=== PATIENT | female | born 1975 | race Asian ===

== ENCOUNTER → 2024-06-13 01:06 | Outpatient (CLI) | payer MEDICAID, SELFPAY ==
--- NOTE | 2024-06-13 09:17 | DI.RAD_ITS ---
Exam(s) XR KNEE RT 3V AP,LAT,PRATEEK EXAM: XR KNEE RT 3V AP,LAT,PRATEEK CLINICAL HISTORY: right knee pain, M25.561. TECHNIQUE: 2D digital imaging was performed. COMPARISON: No exams were available for comparison FINDINGS: 3 views No evidence of acute fracture. Small amount of increased joint fluid noted. No large joint effusion . Bone density normal. No osseous lesions. No obvious degenerative changes. No osteochondral defe cts. No erosions. IMPRESSION: No significant osseous findings in the knee. Small amount of increased joint fluid evident. DATA REPOSITORY: RADIATION DOSE DELIVERED:
== END ==
PROVIDERS: PCP Family Medicine; Visit Provider Family Medicine
DX: M25.561 Pain in right knee (principal); G89.29 Other chronic pain
CPT/HCPCS: 73562

== ENCOUNTER 2024-10-11 13:28 | Outpatient (REF) | payer MEDICAID, SELFPAY ==
--- NOTE | 2024-10-11 09:00 | PAPFT_PTH ---
PATIENT: Haroon Sanchez LOC: [facility] U#:[id number] AGE/SX: 49/F ROOM: RE10/11/[address]: Janice Suárez : 1975 BED: DIS: 10/11/2024 SPEC #: [id number] RECD: 10/11/24 13:30 STATUS: CHRISTEN MAGAÑA #: [id number] NIYAH: 10/11/24 09:[address]: Janice Suárez DEPT: [facility] Cytology RECD BY: Shannan Roy Tissues: 1 - CX/ENDOCX FOR PAP SMEARS Procedures: PAP THIN PREP/[facility] Screening HPV DNA PROBE Comments: [id number] (HPV 16 & 18/45)
== END 2024-10-11 13:29 | disposition home or self-care (01) ==
LOC: NCHCN 13:28
PROVIDERS: PCP Family Medicine; Visit Provider Family Medicine
DX: Z11.51 Encounter for screening for human papillomavirus (HPV) (principal); Z01.419 Encounter for gynecological examination (general) (routine) without abnormal findings
CPT/HCPCS: 88142; 87624

== ENCOUNTER 2024-11-18 12:25 | Outpatient (CLI) | payer MEDICAID, SELFPAY ==
--- OUTSIDE RECORDS SUMMARY | 2024-11-18 12:28 | XMS_ITS | Clinical Summary ---
Author Organization [facility] Address [address] [place] [address] Care Team Providers Care Mule Packer Name Role Phone Unavailable Primary Care Provider Unavailabl e Encounters Date Type Department Care Team Description 10/14/2024 Lab Requisition [facility] Pathology & Laboratory Medicine - [facility] [address] [place] [address] Janice Suárez MD Encounter for other general examination from Last 3 Months Social History Tobacco Use Types Packs/Day Years Used Date Smoking Tobacco: Never Assessed Comments Unknown Sex and Gender Information Value Date Recorded Sex Assigned at Not on file Legal Sex Female 10:07 EST Gender Identity Not on file Sexual Orientation Not on file Plan of Treatment Health Maintenance Due Date Last Done Comments Hepatitis C Screen 1975 Hepatitis B Vaccine (1 of 3 - 19+ 3-dose series) 05/23 COVID-19 Vaccine ( season) 2024 Procedures Procedure Name Priority Date/Time Associated Diagnosis Comments PAP TEST Today 10/11/2024 9:00 EST Encounter for other general examination HPV DNA DETECTION WITH GENOTYPING, PCR Today 10/11/2024 9:00 EST Encounter for other general examination from Last 3 Months Results * PAP TEST (10/11/2024 9:00 EST) Specimens A. Cervix and/or Endocervix , ThinPrep Imaging System with Manual Evaluation 10/17/2024 14:42 EST [facility] Specimen Adequacy Satisfactory for Evaluation - transformation zone component present 10/17/2024 14:42 EST [facility] General Categorization Negative for intraepithelial lesion or malignancy 10/17/2024 14:42 EST [facility] Attestation . 10/17/2024 14:42 EST [facility] at 1442 Clinical History See below 10/17/20 14:42 [facility] Performing Lab [facility] 10/17/2024 14:42 [facility] Scanned Images 10/17/2024 14:42 [facility] HPV High Risk type 16, PCR Negative 10/17/2024 14:42 [facility] HPV High Risk type 18, PCR Negative 10/17/2024 14:42 [facility] HPV Other High Risk Types, PCR Positive Positive for one of the following Other High Risk HPV types: 31,33, 35, 39, 45, 51, 52, 56, 58, 59, 66 and 68. 10/17/2024 14:42 [facility] Pap Test CERVIX UTERI STRUCTURE / Unknown 10/11/2024 9:00 EST 10/14/2024 10:09 EST Janice Suárez MD PATHOLOGY ORDERABLES Fi nal Result [facility] [address] [place] [id number] * (ABNORMAL) HPV DNA DETECTION WITH GENOTYPING, PCR (10/11/2024 9:00 EST) HPV High Risk type 16, PCR Negative Negative 10/17/2024 14:42 [facility] HPV High Risk type 18, PCR Negative Negative 10/17/2024 14:42 [facility] HPV other High Risk types, PCR Positive(A) Negative 10/17/2024 14:42 [facility] Comment: Positive for one of the following Other High Risk HPV types: ??31,33, 35, 39, 45, 51, 52, 56, 58, 59, 66 and 68. Pap Test CERVIX UTERI STRUCTURE / Unknown 10/11/2024 9:00 EST 10/16/2024 15:22 EST Janice Suárez MD MICROBIOLOGY - GENERAL ORDERABLES Final Result [facility] [address] [place] [address] from Last 3 Months
--- OUTSIDE RECORDS SUMMARY | 2024-11-18 12:28 | XMS_ITS | Encounter Summary ---
Author Organization [facility] Address [address] [place] [address] Care Team Providers Care Dental Chairside Assistant Name Role Phone Unavailable Primary Care Provider Unavailabl e Encounter Details Date Type Department Care Team (Late st Contact Info) Description 10/14/2024 Lab Requisition [facility] Pathology & Laboratory Medicine - [facility] [address] [place] [address] Janice Suárez MD [address] [place] [phone] Encounter for other general examination Social History Tobacco Use Types Packs/Day Years Used Date Smoking Tobacco: Never Assessed Comments Unknown Sex and Gender Information Value Date Recorded Sex Assigned at Not on file Legal Sex Female 10:07 EST Gender Identity Not on file Sexual Orientation Not on file documented as of this encounter Plan of Treatment Not on file documented as of this encounter Procedures Procedure Name Priority Date/Time Associated Diagnosis Comments PAP TEST Today 10/11/2024 9:00 EST Encounter for other general examination HPV DNA DETECTION WITH GENOTYPING, PCR Today 10/11/2024 9:00 EST Encounter for other general examination documented in this encounter Results * (ABNORMAL) HPV DNA DETECTION WITH GENOTYPING, PCR (10/11/2024 9:00 EST) HPV High Risk type 16, PCR Negative Negative 10/17/2024 14:42 EST [facility] HPV High Risk type 18, PCR Negative Negative 10/17/2024 14:42 EST [facility] HPV other High Risk types, PCR Positive(A) Negative 10/17/2024 14:42 EST [facility] Comment: Positive for one of the following Other High Risk HPV types: ??31,33, 35, 39, 45, 51, 52, 56, 58, 59, 66 and 68. Pap Test CERVIX UTERI STRUCTURE / Unknown 10/11/2024 9:00 EST 10/16/2024 15:22 EST Janice Suárez MD MICROBIOLOGY - GENERAL ORDERABLES Final Result [facility] [address] [place] [phone] * PAP TEST (10/11/2024 9:00 EST) Specimens A. Cervix and/or Endocervix , ThinPrep Imaging System with Manual Evaluation 10/17/2024 14:42 [facility] Specimen Adequacy Satisfactory for Evaluation - transformation zone component present 10/17/2024 14:42 [facility] General Categorization Negative for intraepithelial lesion or malignancy 10/17/2024 14:42 [facility] Attestation . 10/17/2024 14:42 [facility] at 1442 Clinical History See below 10/17/20 14:42 [facility] Performing Lab [facility] 10/17/2024 14:42 [facility] Scanned Images 10/17/2024 14:42 [facility] HPV High Risk type 16, PCR Negative 10/17/2024 14:42 [facility] HPV High Risk type 18, PCR Negative 10/17/2024 14:42 [facility] HPV Other High Risk Types, PCR Positive Positive for one of the following Other High Risk HPV types: 31,33, 35, 39, 45, 51, 52, 56, 58, 59, 66 and 68. 10/17/2024 14:42 [facility] Pap Test CERVIX UTERI STRUCTURE / Unknown 10/11/2024 9:00 EST 10/14/2024 10:09 EST Janice Suárez MD PATHOLOGY ORDERABLES Fi nal Result [facility] [address] [place] [address] documented in this encounter Visit Diagnoses Diagnosis Encounter for other general examination documented in this encounter
--- OUTSIDE RECORDS SUMMARY | 2024-11-18 12:28 | XMS_ITS | Referral Summary ---
Author Organization [facility] Address [address] [place] [id number] Care Team Providers Care Mathematical Engineering Technician Name Role Phone Unavailable Primary Care Provider Unavailabl e Encounters Date Type Department Care Team Description 10/14/2024 Lab Requisition [facility] Pathology & Laboratory Medicine - [facility] [address] [place] [address] Janice Suárez MD Encounter for other general examination from Last 3 Months Social History Tobacco Use Types Packs/Day Years Used Date Smoking Tobacco: Never Assessed Comments Unknown Sex and Gender Information Value Date Recorded Sex Assigned at Not on file Legal Sex Female 10:07 EST Gender Identity Not on file Sexual Orientation Not on file Plan of Treatment Not on file Procedures Procedure Name Priority Date/Time Associated Diagnosis Comments PAP TEST Today 10/11/2024 9:00 EST Encounter for other general examination HPV DNA DETECTION WITH GENOTYPING, PCR Today 10/11/2024 9:00 EST Encounter for other general examination from Last 3 Months Results * PAP TEST (10/11/2024 9:00 EST) Specimens A. Cervix and/or Endocervix , ThinPrep Imaging System with Manual Evaluation 10/17/2024 14:42 [facility] Specimen Adequacy Satisfactory for Evaluation - transformation zone component present 10/17/2024 14:42 [facility] General Categorization Negative for intraepithelial lesion or malignancy 10/17/2024 14:42 [facility] Attestation . 10/17/2024 14:42 [facility] at 1442 Clinical History See below 10/17/20 14:42 [facility] Performing Lab [facility] 10/17/2024 14:42 [facility] Scanned Images 10/17/2024 14:42 [facility] HPV High Risk type 16, PCR Negative 10/17/2024 14:42 [facility] HPV High Risk type 18, PCR Negative 10/17/2024 14:42 [facility] HPV Other High Risk Types, PCR Positive Positive for one of the following Other High Risk HPV types: 31,33, 35, 39, 45, 51, 52, 56, 58, 59, 66 and 68. 10/17/2024 14:42 [facility] Pap Test CERVIX UTERI STRUCTURE / Unknown 10/11/2024 9:00 EST 10/14/2024 10:09 EST us Janice Suárez MD PATHOLOGY ORDERABLES Fi nal Result Performing Organization Address City/[facility]/ZIP Co de Phone Number [facility] [address] [place] [address] * (ABNORMAL) HPV DNA DETECTION WITH GENOTYPING, PCR (10/11/2024 9:00 EST) HPV High Risk type 16, PCR Negative Negative 10/17/2024 14:42 [facility] HPV High Risk type 18, PCR Negative Negative 10/17/2024 14:42 [facility] HPV other High Risk types, PCR Positive(A) Negative 10/17/2024 14:42 [facility] Comment: Positive for one of the following Other High Risk HPV types: ??31,33, 35, 39, 45, 51, 52, 56, 58, 59, 66 and 68. Pap Test CERVIX UTERI STRUCTURE / Unknown 10/11/2024 9:00 EST 10/16/2024 15:22 EST us Janice Suárez MD MICROBIOLOGY - GENERAL ORDERABLES Final Result Performing Organization Address City/[facility]/ZIP Co de Phone Number [facility] [address] [place] [phone] from Last 3 Months
[2024-11-18 18:55] LABS: HBs Antibody, Qual Positive (See Note); HBs Antibody, Quant 601.5 mIU/mL (See Note); Hepatitis B Core Antibody Negative (Negative); Hepatitis B surface Ag Negative (Negative); Hepatitis C Ab w Rflx HCV PCR Negative (Negative)
[2024-11-18 19:06] LABS: HIV-1/2 Ag & Ab Screen Negative (Negative)
[2024-11-19 10:21] LABS: Syphilis Serology (RPR) Negative (Negative)
== END 2024-11-18 12:26 | disposition home or self-care (01) ==
LOC: LBO 12:26
PROVIDERS: PCP Family Medicine; Visit Provider Obstetrics & Gynecology
DX: Z11.3 Encounter for screening for infections with a predominantly sexual mode of transmission (principal); Z86.19 Personal history of other infectious and parasitic diseases
CPT/HCPCS: 36415; 86704; 86706; 86803; 87340; 87389; 86592

== ENCOUNTER 2025-01-01 09:11 | Day surgery (SDC) | payer MEDICAID, SELFPAY ==
--- NOTE | 2025-01-01 07:15 | W.PM.DSUDISC ---
Date of service: 01/01/25 Discharge Plan Disposition Patient Disposition: Home Condition: Stable Discharge Details Attending Provider: Bubba Champion Primary Care Provider: Janice Suárez Home Meds and New Rx's Prescriptions: Continued famotidine 20 mg tablet 20 mg PO BID Qty: 180 3RF rosuvastatin 5 mg tablet 5 mg PO DAILY Qty: 90 3RF omeprazole 20 mg capsule,delayed release(DR/EC) 20 mg PO HS Qty: 30 2RF cholecalciferol (vitamin D3) 25 mcg (1,000 unit) capsule 25 mcg PO DAILY up4 Probiotics Adult 50 Plus 25 billion cell capsule PO magnesium 250 mg tablet 250 mg PO DAILY cyanocobalamin (vitamin B-12) [Vitamin B-12] 100 mcg tablet 100 mcg PO DAILY Discharge Instructions Additional Instructions: Surgery: Right middle & ring finger trigger releases 01/01/25 Activity: Protect hand for a few weeks. Gently increase finger motion and hand gripping to prevent stiffness. Recommend elevation to minimize swelling and discomfort. Prescriptions: None Resume home medicines, use [id number] Tylenol (acetaminophen) as needed for mild pain and ibuprofen (Motrin) or naproxen (Aleve) as needed for moderate to severe pain and swelling. Dressings: Leave dressing in place for 3 days. May then remove and leave open to air or cover incision with Band-Aid. May get wet after 5 days. Follow-up: 10-[address] Champion Please call the office during business hours with any questions or concerns. Discharge Orders Discharge Orders: Discharge Order (Routine); Ordered 01/01/25 Ordered By: Sydni Murcia DS: Diagnosis Discharge Diagnosis (1) Trigger finger, right middle finger: Status: Acute (2) Trigger finger, right ring finger: Status: Acute
--- NOTE | 2025-01-01 07:55 | ROE_ITS ---
Operative Note Operative Note PRE-OP DIAGNOSIS: Right ring and middle trigger fingers POST-OP DIAGNOSIS: same PROCEDURE: 1. Right middle finger trigger release, CPT# 54889 2. Right ring finger trigger release, CPT# 48622 SURGEON: Bubba Champion POLITICAL SCIENCE PROFESSOR: None None ANESTHESIA TYPE: Local By Surgeon Refer to Anesthesia Record ESTIMATED BLOOD LOSS: 1 TOURNIQUET TIME: 0 COMPLICATIONS: None Patient was transported to: same day Patient's condition: stable Indications: Please see complete medical record for details. Procedure Description: In the operating room, the patient was positioned supine on the stretcher. All bony prominences were padded. Preoperative antibiotics were omitted. The correct patient, procedure, and side of the procedure were all verified prior to beginning. Local anesthesia was induced about the sites with 10cc of 1% lidocaine containing epinephrine buffered with 1 cc of sodium bicarbonate. The right hand was prepped and draped in the usual sterile fashion. Proper analgesia was confirmed. A small volar longitudinal approach was made overlying the middle finger MCP joint. Soft tissues were swept to the sides and retracted to expose the A1 amanda. The release was started centrally with a knife and completed at the proximal and distal margins with tenotomy scissors. Care was taken to protect the flexor tendons. The tendons were inspected and intact. Appropriate flexor tendon excursion was confirmed. The patient readily demonstrated full range of motion of the finger without triggering. A small volar longitudinal approach was made overlying the ring finger MCP joint. Soft tissues were swept to the sides and retracted to expose the A1 amanda. The release was started centrally with a knife and completed at the proximal and distal margins with tenotomy scissors. Care was taken to protect the flexor tendons. The tendons were inspected and showed minimal superficial fraying. Appropriate flexor tendon excursion was confirmed. The patient readily demonstrated full range of motion of the finger without triggering. The small incisions were irrigated and then dried. Hemostasis was appropriate. The incisions were closed using 3-0 nylon in a horizontal mattress fashion. Xeroform was applied followed by gauze and the hand was gently compressed with an Abhinav bandage. The patient tolerated local anesthesia without complication and was transferred out of the operating room in a stable condition. Date of Procedure: 01/01/25
[2025-01-01 09:24] VITALS: BP 111/76; PULSE 71; RESP 16; TEMP 36.2; O2SAT 98
[2025-01-01] MEDS: Sodium Bicarbonate 50 MEQ/50 ML VIAL (11:21)
[2025-01-01] MEDS: Lidocaine 1% Pres-Free W/EPI 1/200,000 10 ML VIAL (11:21)
[2025-01-01 11:47] VITALS: BP 111/78; PULSE 61; RESP 16; TEMP 36.6; O2SAT 96
== END 2025-01-01 12:15 | disposition home or self-care (01) ==
LOC: SUR 09:12
PROVIDERS: PCP Family Medicine; Visit Provider Student in an Organized Health Care Education/Training Program
PROC: (CPT 26055; principal; 2025-01-01 09:30)
DX: M65.331 Trigger finger, right middle finger (principal); M65.341 Trigger finger, right ring finger
CPT/HCPCS: 26055 ×2; J2004

== ENCOUNTER 2025-01-08 01:14 | Outpatient (CLI) | payer MEDICAID, SELFPAY | END 2025-01-08 01:34 | LOC: DI 01:15 | PROVIDERS: PCP Family Medicine; Visit Provider Family Medicine | DX: Z12.31 Encounter for screening mammogram for malignant neoplasm of breast (principal); R92.323 Mammographic fibroglandular density, bilateral breasts | CPT/HCPCS: 77063; 77067 ==

== ENCOUNTER 2025-02-06 13:41 | Outpatient (CLI) | payer MEDICAID, SELFPAY ==
[2025-02-10 14:08] LABS: TB Interpretation Negative (Negative); TB1 Ag minus Nil 0.02 IU/mL; TB2 Ag minus Nil 0.01 IU/mL
== END 2025-02-06 13:42 | disposition home or self-care (01) ==
LOC: LBO 13:41
PROVIDERS: PCP Family Medicine; Visit Provider Nurse Practitioner Family
DX: R76.11 Nonspecific reaction to tuberculin skin test without active tuberculosis (principal)
CPT/HCPCS: 36415; 86480

== ENCOUNTER 2025-02-10 02:01 | Outpatient (CLI) | payer MEDICAID, SELFPAY ==
--- NOTE | 2025-02-10 06:45 | DI.RAD_ITS ---
Exam(s) XR CHEST 2V PA LATERAL EXAM: XR CHEST 2V PA LATERAL CLINICAL HISTORY: positive TB skin test,R76.11 TECHNIQUE: 2D digital imaging was performed. Two views. COMPARISON: No exams were available for comparison FINDINGS: HEART: Normal size. Aorta: Not dilated. PULMONARY VASCULATURE: Normal. MEDIASTINUM: Unremarkable. No evidence of adenopathy. LUNGS: Clear. PLEURAL SPACE: No pleural effusion or pneumothorax. BONE:Unremarkable for age. SOFT TISSUES: Unremarkable. IMPRESSION: No acute abnormality. No evidence of active or old healed tuberculosis. DATA REPOSITORY: RADIATION DOSE DELIVERED:
== END 2025-02-10 02:21 ==
LOC: DI 02:01
PROVIDERS: PCP Family Medicine; Visit Provider Nurse Practitioner Family
DX: R76.11 Nonspecific reaction to tuberculin skin test without active tuberculosis (principal)
CPT/HCPCS: 71046

== ENCOUNTER 2025-07-18 14:54 | Outpatient (CLI) | payer MEDICAID, SELFPAY ==
[2025-07-18 10:27] LABS: Abs Immature Grans 0.01 10^3/uL (0.0-0.06); HCT 40.9 % (36.0-46.0); HGB 13.1 g/dL (11.2-15.7); Immature Grans % 0.2 %; MCH 29.3 pg (27.0-33.0); MCHC 32.0 % (32.0-36.0); MCV 92 fL (80-95); MPV 9.1 fL (8.0-11.0); Platelet Count 231 10^3/uL (130-400); RBC 4.47 10^6/uL (3.93-5.22); RDW 12.0 % (11.7-14.6); RDW-SD 39.9 fL; WBC 4.64 10^3/uL (4.4-10.8)
[2025-07-18 11:41] LABS: ALT 19 U/L (14-59); AST 18 U/L (15-37); Albumin 4.1 g/dL (3.4-5.0); Alkaline Phosphatase 65 U/L (46-116); Anion Gap 5.3 mmol/L (3-11); BUN 11 mg/dL (7-18); Bilirubin, Total 0.5 mg/dL (0.2-1.0); CO2 29.7 mmol/L (21.0-32.0); Calcium 9.4 mg/dL (8.5-10.1); Chloride 104 mmol/L (98-107); Estimated GFR 107.93 (mL/min/1.73m2); Glucose 93 mg/dL (74-106); Lipase 43 U/L (<78); Potassium 4.2 mmol/L (3.5-5.1); Sodium 139 mmol/L (136-145); Total Protein 7.7 g/dL (6.4-8.2)
[2025-07-18 12:21] LABS: TSH (W/Ref FT4) 1.11 uIU/mL (0.36-3.74)
== END 2025-07-18 14:55 | disposition home or self-care (01) ==
LOC: LBO 14:55
PROVIDERS: PCP Family Medicine; Visit Provider Family Medicine
DX: R10.13 Epigastric pain (principal); E03.9 Hypothyroidism, unspecified; T73.3XXA Exhaustion due to excessive exertion, initial encounter; Z00.00 Encounter for general adult medical examination without abnormal findings
CPT/HCPCS: 36415; 80053; 83690; 87338; 84443; 85025

== ENCOUNTER 2025-08-27 08:08 | Day surgery (SDC) | payer OTHER, MEDICAID, SELFPAY ==
--- NOTE | 2025-08-26 18:37 | ANES.PREOP_ITS ---
General Info Date of Service Date Performed: 08/27/25 Height: 5 ft Weight: 53.977 kg Body Mass Index (BMI): 23.2 Surgical Procedure: Operation Date: 08/27/25 10:20 Proposed Procedure Side Surgeon herbert Manley MD Meds Allergies and Home Medications Allergies Allergy/AdvReac Type Severity Reaction Status Date / Time seafood AdvReac Severe Skin Rash Uncoded 08/27/25 08:26 Home Medication ?Medication ?Instructions ?Recorded Lactobacillus 1 cap PO DAILY 11/18/24 acidophil,plantar-Bifido no.7 25 billion cell capsule (up4 Probiotics Adult 50 Plus) cholecalciferol (vitamin D3) 25 25 mcg PO DAILY mcg (1,000 unit) capsule cyanocobalamin (vitamin B-12) 100 100 mcg PO DAILY mcg tablet (Vitamin B-12) magnesium 250 mg tablet 250 mg PO DAILY 11/18/24 clobetasol 0.05 % topical ointment 1 applic topical BI D #15 grams 06/18/25 omeprazole 20 mg capsule,delayed 20 mg PO HS #90 caps 06/18/25 release bisacodyl 5 mg tablet,delayed 5 mg PO ONCE #4 tabs 06/30 release (Dulcolax (bisacodyl)) polyethylene glycol 3350 17 17 g PO ONCE #238 grams gram/dose oral powder Current Visit Medications: Current Medications Generic Name Dose Route Start Last Admin Trade Name Freq PRN Reason Stop Dose Admin Ringer's Solution 1,000 mls @ 80 mls/hr 08/27/25 06:00 IV 08/27/25 23:59 INFUSION LEIDY IV Miscellaneous Supplies 1 each 08/27/25 06:00 Iv Access IV 08/27/25 23:59 DIRECTED LEIDY Sodium Chloride 0 ml 08/27/25 06:00 Normal Saline Flush 10 Ml Syr IV 08/27/25 23:59 PRN PRN Sodium Chloride 0 ml 08/27/25 06:00 Normal Saline 10 Ml Vial IJ 08/27/25 23:59 DIRECTED PRN Sterile Water 0 ml 08/27/25 06:00 Water,Injection,Sterile 10 Ml Vial IJ 08/27/25 23:59 DIRECTED PRN PFSH Active Problems Active Problems: Problem Status Onset Code Fatigue due to excessive exertion Acute T73.3XXA Eczema Acute L30.9 Epigastric pain Acute ~2019 R10.13 Trigger finger, right ring finger Acute M65.341 Trigger finger, right middle finger Acute M65.331 Knee pain, right Acute M25.561 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 Mixed hyperlipidemia Acute E78.2 GERD with esophagitis Acute K21.00 Medical History Medical History LGSIL Pap smear of vagina (10/2023) Pap 10/2024: NIL/HPV+ Pap 05/2024: NIL/HPV+ colposcopy 10/2023 with negative biopsy Fibroid uterus s/p HAY in March 2022 Surgical History Surgical History S/P hysterectomy (05/2022) for fibroid uterus and menorrhagia S/P Tobacco Smoking/Tobacco Use Status: Never Passive smoking exposure: Yes Alcohol Alcohol Intake: current Alcohol intake frequency: a few times a month Substance Use Substance use: Never Substance use type: does not use Prental History History 2 Para 2 Hx # Term Pregnancies Multiple births Hx # Pregnancies Ectopic pregnancies AB induced Hx Number of Living Children AB spontaneous Past Pregnancies Del. Date GA/Weeks # Preg Succ Route Wgt Sex Labor Lgth Anesth esia Location [facility] 11/05/04 3742.137 g Female [place], [place] 04/16/06 4025.632 g Male [place], [place] Delivery Date: 11/05/04 Last Updated by: Nidia Roberto RN [facility] Delivery Date: 04/16/06 Last Updated by: FLORENCE Bryson Vital Signs and Lab Results Vital Signs Most Recent Vital Signs in EMR: Temp Pulse Resp BP Pulse Ox 36.3 C L 67 16 117/78 100 08/27/25 08:34 08/27/25 08:34 08/27/25 08:34 08/27/25 08:34 08/27/25 08:34 Anesthesia Assessment and Plan Anesthesia History Personal History: No History of Anesthesia Complications Family History: No Family History of Anesthesia Complications Exercise Tolerance Exercise Tolerance: Metabolic Equivalents>4 Cardiac & Pulmonary Exam Cardiac Exam: Heart Murmur Present Pulmonary Exam: Clear Bilateral Breath Sounds Implantable Cardiac Device Does patient have a Pacemaker or an ICD?: No Airway Exam Known Difficult Airway: No Mallampati Class: 4 Mouth Opening: Narrow (< 3cm) Thyromental Distance: Less than 3 cm Neck Range of Motion: Full ROM Neck Circumference: Normal Teeth Condition: Normal Dentition ASA Classification ASA Score: ASA 2 Emergency Case?: No NPO Status NPO Status: NPO Clears >2 hours, Solids >8 hours Status Status: History of Hysterectomy Anesthesia Plan Resuscitation Status: Full Code Anesthesia Technique: General Anesthesia Airway Planned: Natural Airway Monitors Used: Standard Monitors Preoperative Comments:: 50 yo for colo. Sig PMHx: GERD (omeprazole), Never smoker, occ EtOH.
[2025-08-27 08:34] VITALS: BP 117/78; PULSE 67; RESP 16; TEMP 36.3; O2SAT 100
[2025-08-27 08:48] VITALS: BMI 23.2
[2025-08-27] MEDS: Lactated Ringers 1,000 ML 80 ML IV (08:58)
--- NOTE | 2025-08-27 10:04 | W.PM.DSUDISC ---
Date of service: 08/27/25 Discharge Plan Disposition Patient Disposition: Home Condition: Good Discharge Details Reason For Visit: Screening colonoscopy Attending Provider: Katja Manely Primary Care Provider: Janice Suárez Home Meds and New Rx's Prescriptions: Continued clobetasol 0.05 % ointment 1 applic topical BID Qty: 15 0RF omeprazole 20 mg capsule,delayed release(DR/EC) 20 mg PO HS Qty: 90 3RF cholecalciferol (vitamin D3) 25 mcg (1,000 unit) capsule 25 mcg PO DAILY up4 Probiotics Adult 50 Plus 25 billion cell capsule 1 cap PO DAILY magnesium 250 mg tablet 250 mg PO DAILY cyanocobalamin (vitamin B-12) [Vitamin B-12] 100 mcg tablet 100 mcg PO DAILY Discontinued bisacodyl [Dulcolax (bisacodyl)] 5 mg tablet,delayed release (DR/EC) 5 mg PO ONCE Qty: 4 0RF Rx Instructions: Take per colonoscopy instructions provided by ordering providers office polyethylene glycol 3350 17 gram/dose powder 17 g PO ONCE Qty: 238 0RF Rx Instructions: Take per colonoscopy instructions provided by ordering providers office Discharge Instructions Additional Instructions: Your colonoscopy went well today. There were no abnormal findings during the procedure. You should have another screening colonoscopy in 10 yrs. Please contact the General Surgery office if you have further questions or concerns. 1. If tolerated, consume a soft, low fiber diet for 1-2 days. 2[address] Do not drive, drink alcohol, operate machinery, make critical decisions, or do activities that require coordination or balance for 24 hours. 3. Because air was put into your colon during the procedure, expelling air from your rectum (passing gas or farting) is normal. 4. You may not have a bowel movement for 1-3 days because of the colonoscopy prep. This is normal. 5. Go directly to the emergency room if you notice any of the following: Develop chills (warm to touch), or if you have a thermometer and your temperature is above 101 Difficulty breathing or difficultly swallowing Persistent vomiting Severe abdominal pain, other than gas cramps Severe chest pain Black, tarry stools Any bleeding ? exceeding one tablespoon 6. Call your physician if the site where your intravenous was started becomes red, swollen, painful, and warm to touch. 7. Your physician has reviewed your pre-procedure medications. Please continue to take those medications as previously ordered. You will be given specific information/education regarding any changes to your medications before leaving. Activity:: Activity as Tolerated Diet:: As Tolerated Discharge Orders Discharge Orders: Discharge Order (Routine); Ordered 08/27/25 Ordered By: Katja Manley
[2025-08-27 10:05] VITALS: BP 103/72; PULSE 59; RESP 16; TEMP 36.3; O2SAT 100
--- NOTE | 2025-08-27 10:07 | COLE_ITS ---
Date of service: 08/27/25 Time of Service: 10:07 Colonoscopy Report Date of procedure: 08/27/25 Pre-op diagnosis general: Screening colonoscopy Post-op diagnosis procedure note: same Procedure: Colonoscopy Surgeon: Katja Manley Anesthesia Type: General:No Airway Estimated blood loss (mL): 1 Pathology: none sent Complications: None Disposition: PACU Indications: Patient is a 50 yo female who presents for a screening colonoscopy. She has no family history of colon cancer or changes in bowel habits. Prep: Miralax/Dulcolax Procedure Start Time: 09:44 Procedure End Time: 10:00 Retraction Time: 9 Findings: Normal screening colonoscopy. Procedure Description: Informed consent was obtained. The patient was taken to the endoscopy suite and placed in the left lateral decubitus position. After adequate intravenous sedation, digital rectal exam was performed, which was normal. A colonoscope was inserted into the rectum and easily negotiated to the cecum. The ileocecal valve and appendiceal orifice were identified. The entire colonic mucosa was then carefully circumferentially inspected upon slow withdrawal of the scope. The entire colon all appeared normal. The patient tolerated the procedure well with no complications. Postoperatively, the patient was transferred to the recovery room in stable condition. [place] Bowel Prep Denton Bowel Prep Right Colon: 3 Left Colon: 3 Transverse Colon: 3 Total Score: 9
--- NOTE | 2025-08-27 10:28 | W.ANESPOSTOP ---
Postoperative Evaluation Date, Time and Location Date Performed: 08/27/25 Time Performed: 10:20 Patient Location: Day Surgery Unit Vital Signs Most Recent Imported Vital Signs: Most Recent Vital Signs Temp Pulse Resp BP Pulse Ox 36.3 C L 59 L 16 103/72 100 08/27/25 10:05 08/27/25 10:05 08/27/25 10:05 08/27/25 10:05 08/27/25 10:05 Pain Score Most Recent Pain Score: Most Recent Pain Score Pain Level 0 08/27/25 10:05 Assessment Mental Status: Awake (Alert & Oriented to Patient Baseline) Airway and Respiratory Function: Patent airway with normal (patient baseline) respiratory exam Cardiovascular Function: Hemodynamically Stable Hydration Status: Adequately Hydrated Nausea & Vomiting: No Nausea or Vomiting Pain: Pt. Denies Any Pain Peripheral Nerve Block: Patient did not receive a nerve block
[2025-08-27 10:40] VITALS: BP 122/74; PULSE 55; RESP 16; TEMP 36.2; O2SAT 100
== END 2025-08-27 11:00 | disposition home or self-care (01) ==
PROVIDERS: PCP Family Medicine; Visit Provider Student in an Organized Health Care Education/Training Program
PROC: 0DJD8ZZ Inspection of Lower Intestinal Tract, Via Natural or Artificial Opening Endoscopic (ICD-10-PCS; CPT 45378; principal; 2025-08-27 10:15)
DX: Z12.11 Encounter for screening for malignant neoplasm of colon (principal); K21.9 Gastro-esophageal reflux disease without esophagitis
CPT/HCPCS: 45378; J2704

== ENCOUNTER 2025-10-22 12:14 | Outpatient (REF) | payer OTHER, SELFPAY ==
--- NOTE | 2025-10-22 08:00 | PAPFT_PTH ---
PATIENT: Haroon Sanchez LOC: [facility] U#:[id number] AGE/SX: 50/F ROOM: RE10/22/[address]: Janice Suárez : 1975 BED: DIS: 10/22/2025 SPEC #: [id number] RECD: 10/22/25 15:47 STATUS: CHRISTEN REPradeep #: [id number] NIYAH: 10/22/25 08:[address]: Janice Suárez DEPT: [facility] Cytology RECD BY: Shannan Roy Tissues: 1 - CX/ENDOCX FOR PAP SMEARS Procedures: PAP THIN PREP/[facility] Screening HPV DNA PROBE Comments: [id number] (HPV 16 & 18/45)
== END 2025-10-22 12:15 | disposition home or self-care (01) ==
LOC: LBN 12:14
PROVIDERS: PCP Family Medicine; Visit Provider Family Medicine
DX: Z12.4 Encounter for screening for malignant neoplasm of cervix (principal)
CPT/HCPCS: 88142; 87624